=== PATIENT | male | born 1995 | race Caucasian/White ===

== ENCOUNTER 2020-04-06 10:16 | Emergency (ER) | payer MEDICAID, OTHER ==
[~2020-04-06] VITALS: Ht 172.7 cm; Wt 90.4 kg
--- NOTE | 2020-04-06 11:01 | NUR ---
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
--- NOTE | 2020-04-06 11:19 | NUR ---
PT FOUND TO BE AMBULATING AROUND ROOM WITH C-COLLAR IN PLACE. PT INSTRUCTED ON LAYING FLAT ON GURNEY INSTRUCTED BY MERCHANDISE PLANNER IN ORDER TO FACILITATE SAFETY. PT VERBALIZED UNDERSTANDING. CALL LIGHT W/IN REACH, PT INSTRUCTED ON USE. VERBALIZED UNDERSTANDING. UPON LEAVING THE ROOM, PT FOUND TO BE AMBULATING AROUND ROOM ONCE AGAIN DESPITE PREVIOUS INSTRUCTION BY RN X 2.
--- NOTE | 2020-04-06 11:50 | NUR ---
report from tani [email or web address] as
--- NOTE | 2020-04-06 11:57 | NUR ---
at imaging. as
[2020-04-06 13:12] VITALS: BP 145/91
== END 2020-04-06 13:14 | disposition home or self-care (01) ==
LOC: ED 12:38
DX: S16.1XXA Strain of muscle, fascia and tendon at neck level, initial encounter (principal); S80.12XA Contusion of left lower leg, initial encounter; M79.89 Other specified soft tissue disorders; V47.5XXA Car driver injured in collision with fixed or stationary object in traffic accident, initial encounter; Y93.89 Activity, other specified; Y92.488 Other paved roadways as the place of occurrence of the external cause; Y99.8 Other external cause status
CPT/HCPCS: 72020; 72050; 99284